=== PATIENT | female | born 1950 | race Caucasian/White ===

== ENCOUNTER 2024-04-17 10:55 | Outpatient (CLI) | payer MEDICARE, MEDICAID ==
[~2024-04-17 10:55] MED LIST: FAMO-128 PO; LEVO112T5 PO
== END 2024-04-17 23:59 | disposition home or self-care (01) ==
LOC: RAD 10:55
PROVIDERS: ATTEND Family Medicine
DX: Z13.6 Encounter for screening for cardiovascular disorders (principal); E78.1 Pure hyperglyceridemia
CPT/HCPCS: 75571